=== PATIENT | male | born 1975 | race Caucasian/White ===

== ENCOUNTER 2021-01-25 21:23 | Emergency (ER) | payer OTHER, SELFPAY ==
--- NOTE | ~2021-01-25 | XR_ITS ---
EXAMINATION: XR LUMBOSACRAL SPINE CLINICAL INFORMATION: Pain COMPARISON: None TECHNIQUE: Three views of the lumbosacral spine. FINDINGS: No listhesis or evidence of compression injury. Vertebral heights and disc heights are fairly well-maintained. No significant degenerative change. XR/XR lumbar spine 2-3V IMPRESSION: No suspicious bony finding.
[2021-01-25 21:27] VITALS: BP 140/87; PULSE 77; RESP 16; TEMP 36.9; O2SAT 98; BMI 41.1
--- NOTE | 2021-01-25 22:10 | ED_ITS ---
HPI - Back Pain/Injury General Chief Complaint: Back Pain/Injury Stated Complaint: back pain Time Seen by Provider: 01/25/21 22:04 Source: patient Mode of arrival: wheelchair Limitations: no limitations History of Present Illness HPI Narrative: Patient no significant past medical history of back problems bent down to lift a hamper and strained his low back at 15:00 radiating to both hips no leg weakness no bladder or bowel incontinence no focal neurological deficit MD elicited complaint: back pain Related Data Previous Rx's Medication Instructions Recorded cyclobenzaprine 10 mg PO Q8H #20 tab 01/26/21 ibuprofen 600 mg PO Q6H PRN #20 tab 01/26/21 oxycodone-acetaminophen [Percocet] 1 tab PO Q6H PRN #20 tab 01/26/21 prednisone 40 mg PO DAILY #10 tab 01/26/21 Allergies Allergy/AdvReac Type Severity Reaction Status Date / Time No Known Allergies Allergy Verified 01/25/21 21:32 [No Known Allergies*] Review of Systems Review of Systems: Constitutional : No Weight loss, No Fever, No Chills ENT/Mouth : No sore throat, No Rhinorrhea Eyes: No Eye Pain, No Swelling Cardiovascular : No Chest Pain, no palpitations Respiratory : No Cough, No Sputum, no shortness of breath Gastrointestinal : no Nausea, No Vomiting, No Diarrhea, No abdominal Pain, no black stools Genitourinary : No Dysuria, No Urinary Frequency Musculoskeletal : No joint pain, No Myalgias, No Joint Swelling Skin : No Skin Lesions, No rash Neuro : No Weakness, No Numbness, No Dizziness, No Headache Psych : No Anxiety/Panic, No Depression Heme/Lymph: No Bruising, No Lymphadenopathy Endocrine : No Polyuria, No Polydipsia All other systems reviewed and are negative [facility] Past Medical History Medical History Insomnia Sleep apnea Social History Social History Advance Directives: No Advance Directives Information Provided: Yes Physical Exam Vital Signs: Vital Signs: Last Vital Signs Temp 98.5 F 01/25/21 21:27 Pulse 65 01/25/21 23:04 Resp 16 01/25/21 23:04 BP 109/67 01/25/21 23:04 Pulse Ox 99 01/25/21 23:04 Body Mass Index 41.1 Const: General: well developed and in distress Nutritional Appearance: average body habitus Orientation/consciousness: patient oriented x3 HENMT: Head: Yes normocephalic and Yes atraumatic Ears: hearing grossly normal bilaterally Eyes: General: appearance normal, both eyes and all related structures Neck: Neck: Yes normal visual inspection Resp: Effort & Inspection: normal respiratory effort Auscultation: clear to auscultation bilaterally Cardio: Rate: regular rate Rhythm: regular rhythm Heart sounds: S1 normal heart sound present and S2 normal heart sound present GI: Inspection: Yes normal to inspection Palpation (GI): Soft to palpation and nontender : General: Yes no CVA tenderness Back/Spine/Pelvis: Back: no CVA tenderness Thoracic/Lumbar Spine: thoracic and lumbar spine normal to inspection, pain with thoraco-lumbar ROM, paraspinal muscle tenderness, thoraco-lumbar spasm, No thoracic spinal tenderness, lumbar spinal tenderness (Deep tenderness) at L3 and No straight leg raise positive Pelvis: no pain with anterior-posterior compression Skin: General skin exam: no rashes or lesions noted Neuro: General: patient oriented x3, no focal motor deficits and deep tendon r eflexes 2+ bilaterally Extrem: General: Yes full ROM MDM - Back Pain/Injury MDM Narrative Medical decision making narrative: Patient low back pain with no history of same in the past no findings of spinal cord injury x-ray negative for any significant arthritis symptoms likely from ligamentous strain. Will discharge patient home on pain medication and muscle relaxation Differential Diagnosis Differential diagnosis: Likely strain of lumbar region Medical Records Attestation: I reviewed the patient's medical records. Discharge Plan Discharge Clinical Impression: Strain of lumbar region Qualifiers: Encounter type: initial encounter Qualified Code(s): S39.012A - Strain of muscle, fascia and tendon of lower back, initial encounter Patient Disposition: Home, Self-Care Instructions: Low Back Strain (ED) Additional Instructions: Rest at home Apply ice Take pain medication and muscle relaxants as advised. Follow with PCP if not better Prescriptions: New cyclobenzaprine 10 mg tablet 10 mg PO Q8H Qty: 20 RF: 0 prednisone 20 mg tablet 40 mg PO DAILY Qty: 10 RF: 0 oxycodone-acetaminophen [Percocet] 5-325 mg tablet 1 tab PO Q6H PRN (Reason: pain) Qty: 20 RF: 0 ibuprofen 600 mg tablet 600 mg PO Q6H PRN (Reason: pain) Qty: 20 RF: 0 Print Language: Bahamian
[2021-01-25] MEDS: Cyclobenzaprine HCl 10 MG TABLET PO (22:14)
[2021-01-25] MEDS: Morphine Sulfate 10 MG/ML CARTRIDGE IM (22:15)
[2021-01-25] MEDS: dexAMETHasone 2 MG TABLET 10 MG PO (22:15)
[2021-01-25 23:04] VITALS: BP 109/67; PULSE 65; RESP 16; O2SAT 99
[2021-01-25] MEDS: Ketorolac Tromethamine 60 MG/2 ML VIAL IM (23:30)
== END 2021-01-26 00:15 | disposition home or self-care (01) ==
PROVIDERS: Emergency Provider Internal Medicine; PCP Internal Medicine
DX: S39.012A Strain of muscle, fascia and tendon of lower back, initial encounter (principal); X50.0XXA Overexertion from strenuous movement or load, initial encounter; Y93.E2 Activity, laundry; Y92.019 Unspecified place in single-family (private) house as the place of occurrence of the external cause; Y99.9 Unspecified external cause status
CPT/HCPCS: 72100; 96372; 99284; J1885; J2270; J8540